=== PATIENT | female | born 1965 | race Caucasian/White ===

== ENCOUNTER 2020-03-04 00:02 | Inpatient (IN) | payer BC, SELFPAY ==
[2020-03-04] VITALS (20 sets, daily range): BP systolic 115–145; BP diastolic 54–77; PULSE 84–126; RESP 20–30; TEMP 36.4–37.9; O2SAT 91–97; BMI 21.5
--- NOTE | ~2020-03-04 | CT_ITS ---
EXAMINATION: CTA chest PE protocol EXAM DATE: 03/04/2020 02:56 INDICATION: Shortness of breath, abnormal x-ray finding. TECHNIQUE: Spiral CTA of the chest (pulmonary arteries) was performed with 100 cc Omnipaque 350 intr avenous contrast injection. Images were acquired during the pulmonary arterial phase. Coronal maxi mum intensity projection 3D-reconstructions were created by the technologist on dedicated workstation . Axial, coronal and sagittal reformatted images were reviewed. The dose-length product (DLP) for t his examination was 166.29 mGy-cm. The exposure was tailored according to patient size (auto mA exp osure control), and iterative reconstruction (ASIR) was used as additional dose reduction technique. There is no prior study for comparison. FINDINGS: Pulmonary arteries are well opacified and without intraluminal filling defects. No thora cic aortic dissection. Lungs are mildly hyperinflated. Several small regions of groundglass attenuation in the right lung, d ifferential diagnosis including atelectasis, infection, acute lung injury. There are no pleural or pe ricardial effusions. Small amount of right lower lobe posterior segmental endobronchial debris. The airways otherwise widely patent. There is no mediastinal, hilar or axillary lymphadenopathy. Ther e is no pneumothorax. Heart normal in size. No evidence of coronary arterial calcification. Hepa tic cyst measuring 1.7 cm. The bones are unremarkable. IMPRESSION: 1. No pulmonary emboli. 2. Several small regions right lung groundglass opacity likely acute airspace disease reconsider ate lectasis, infection, or acute lung injury. Reviewed, dictated and finalized at location G. STIGATIONS CHIEF IMPRESSION: 1. No pulmonary emboli. 2. Several small regions right lung groundglass opacity likely acute airspace disease reconsider atelectasis, infection, or acute lung injury.
--- NOTE | ~2020-03-04 | XR_ITS ---
EXAMINATION: XR chest 1V portable INDICATION: Shortness of breath TECHNIQUE: Portable AP chest at 0036 hours COMPARISON: None available FINDINGS: The lungs are hyperinflated but free of acute opacities. There is no pleural effusion or pn eumothorax. The cardiomediastinal silhouette is normal. IMPRESSION: 1. No acute cardiopulmonary abnormality. Reviewed, dictated and finalized at location A. LE MOUNTER
--- NOTE | 2020-03-04 00:23 | ECG_ITS ---
Measurements Intervals [place] Rate: 121 P: 79 MT: 153 QRS: 74 QRSD: 98 T: 47 QT: 338 QTc: 480 Interpretive Statements SINUS TACHYCARDIA INCOMPLETE RIGHT BUNDLE BRANCH BLOCK DELAYED PRECORDIAL R/S TRANSITION BORDERLINE ST-T WAVE ABNORMALITY- ANTEROLAT/INF LEADS BASELINE ARTIFACT- I, II, III, AVR, AVL, AVF, V1-V6 ABNORMAL ECG Electronically Signed On 03-04-2020 6:52:11 [employer]AMP [employer]ESSER by Dagoberto Nelson D.O.
--- NOTE | 2020-03-04 00:30 | ED.SOB ---
HPI - SOB/Dyspnea General Chief Complaint: Shortness of Breath/Dyspnea Stated Complaint: SOB Time Seen by Provider: 03/04/20 00:07 Source: patient Mode of arrival: ambulatory Limitations: no limitations History of Present Illness HPI Narrative: Patient is a 54-year-old female complaining of shortness of breath started approximately 1 week ago worse tonight. Patient denies any cough, nasal or chest congestion, chest pain, abdominal pain, nausea vomiting, fever or chills. Related Data Home Medications Medication Instructions Recorded Confirmed calcium carbonate 500 mg calcium 500 mg PO DAILY 12/15/19 12/15/19 (1,250 mg) tablet multivitamin 1 tablet PO DAILY 12/15/19 12/15/19 Allergies Allergy/AdvReac Type Severity Reaction Status Date / Time No Known Allergies Allergy Mild Verified 12/15/19 08:56 Review of Systems Review of Systems: All systems reviewed & are unremarkable except as noted in HPI and below Constitutional: Constitutional: Denies body ache(s), Denies chills, Denies excessive sweating, Denies fatigue, Denies fever(s), Denies headache(s), Denies lethargy, Denies malaise, Denies weakness and Denies weight loss Eyes: Eyes: Denies blurry vision, Denies change in vision and Denies loss of vision ENT: Denies dizziness, Denies ear discharge, Denies headache(s), Denies lip swelling, Denies epistaxis, Denies nasal congestion, Denies neck pain, Denies throat swelling and Denies tongue swelling Cardiovascular: Cardiovascular: Denies chest pain, Denies chest pain at rest, Denies chest pain with activity, Denies diaphoresis, Denies rapid heart rate, Denies edema, Denies irregular heart rhythm, Denies lightheadedness and Denies palpitations Respiratory: Respiratory: Denies chest congestion and Denies hemoptysis Gastrointestinal: Gastrointestinal: Denies abdominal pain, Denies melena, Denies hematochezia, Denies diarrhea, Denies nausea, Denies vomiting and Denies hematemesis Musculoskeletal: Musculoskeletal: Denies abnormal gait, Denies deformity, Denies joint swelling, Denies limited range of motion, Denies neck pain and Denies numbness Neurologic: Denies Abnormal speech present, Denies abnormal gait, Denies confusion, Denies dizziness, Denies headache(s), Denies focal weakness, Denies loss of vision, Denies numbness, Denies Other visual disturbances, Denies Sensory deficit (Neuro) and Denies weakness Psychiatric: Psychiatric: Denies confusion, Denies depression, Denies auditory hallucinations, Denies homicidal ideation and Denies suicidal ideation Endocrine: Endocrine: Denies cold intolerance, Denies excessive sweating, Denies fatigue, Denies heat intolerance and Denies palpitations Hematologic/Lymphatic: Hematologic/Lymphatic: Denies easy bleeding and Denies easy bruising Allergic/Immunologic: Allergic/Immunologic: Denies lip swelling, Denies throat swelling and Denies tongue swelling PMFSH Past Medical History Medical History (Updated 03/04/20 @ 03:44 by Tl Nielsen MD) History of vaginal delivery Surgical History Surgical History History of tonsillectomy Family History Family History Grandparent Cerebrovascular accident, Onset Age: 92 Social History Social History Smoking status: Never smoker Tobacco type: cigarettes Second hand tobacco smoke exposure: No Smoking end date: 04/29/05 Alcohol intake: current Exam Const: General: cooperative, healthy appearing, comfortable, no acute distress, well developed, alert and awake; No confusion Orientation/consciousness: oriented to person, oriented to place, oriented to time, patient oriented x3 and No confusion Limitations: no limitations HENMT: Head: normal to inspection, normocephalic and atraumatic Ears: hearing grossly normal bilaterally, TM normal on the righ
[2020-03-04 00:36] LABS: Basophils Absolute Auto 0.1 K/mm3 (0.0-0.1); Basophils Percent Auto 0.4 % (0.2-1.2); Eosinophils Absolute Auto 0.3 K/mm3 (0-0.3); Eosinophils Percent Auto 1.8 % (0-4.4); Hematocrit 49.3 % (37.0-47.0); Hemoglobin 16.2 g/dL (12.0-15.0); Immature Granulocyte Absolute 0.06 K/mm3 (0.00-0.031); Immature Granulocyte Percent A 0.4 % (0-0.5); Lymphocytes Absolute Auto 1.84 K/mm3 (0.9-3.2); Lymphocytes Percent Auto 12.9 % (18.3-44.2); Mean Corpuscular HGB Conc 32.9 g/dl (32-36); Mean Corpuscular Hemoglobin 29.7 pg (26-34); Mean Corpuscular Volume 90.5 fl (80-100); Mean Platelet Volume 10.1 fl (7.4-10.4); Monocytes Absolute Auto 0.8 K/mm3 (0.1-0.6); Monocytes Percent Auto 5.7 % (2.6-8.5); Neutrophils Absolute Auto 11.2 K/mm3 (1.3-6.7); Neutrophils Percent Auto 78.8 % (45.5-73.1); Platelet Count Result 302 k/mm3 (150-375); Red Blood Count 5.45 M/mm3 (4.2-5.4); Red Cell Distribution Width 13.4 % (11.5-14.5); White Blood Count 14.3 K/mm3 (4.5-10.0)
[2020-03-04] MEDS: ALBUTEROL SULFATE NEB 2.5 MG/0.5 ML INH 5 MG INHALATION (00:38)
[2020-03-04] MEDS: IPRATROPIUM BR 0.02% INH SOLN 0.5 MG/2.5 ML VIAL INHALATION ×2 (00:38→19:45)
[2020-03-04] MEDS: methylPREDNISolone SOD SUCC 125 MG VIAL IV PUSH (00:39)
[2020-03-04 00:46] LABS: Prothrombin Time 13.7 Seconds (11.1-14.7)
[2020-03-04 00:47] LABS: Partial Thromboplastin Time 27.4 SECONDS (22.3-36.8)
[2020-03-04 00:51] LABS: Alanine Aminotransferase 32 U/L (4-35); Albumin Level 4.5 g/dL (3.5-5.1); Alkaline Phosphatase 95 U/L (38-126); Anion Gap 10 mmol/L (8-16); Aspartate Amino Transferase 35 U/L (14-36); Bilirubin,Total 0.6 mg/dL (0.2-1.3); Blood Urea Nitrogen 13 mg/dL (7-17); Calcium 9.7 mg/dL (8.4-10.2); Carbon Dioxide 31 mmol/L (22-30); Chloride 102 mmol/L (98-107); Estimated CRCL calculation 87 ml/min; Estimated Glomerular Filt Rate > 60; Glucose 115 mg/dL (65-105); Potassium 3.6 mmol/L (3.4-5.0); Sodium 143 mmol/L (137-145)
[2020-03-04 00:53] LABS: Alveolar/Arterial O2 Gradient 146.9 mmHg; Base Excess ABG -0.3 mEq/l (+/-2.0); Carboxyhemoglobin 0.8 % THb (0-2.0); Device NASAL CANNULA; Fractional Inspired Oxygen 40 %; HCO3 ABG 26.2 mEq/l (22.0-26.0); Methemoglobin ABG 0.4 %THb (0-1.5); Modified Allen's Test Pass; Oxygen Content ABG 21.1 %vol (16.0-22.0); Oxygen Saturation ABG 95.4 % (95.0-100.0); Oxyhemoglobin 94.5 % THb (90.0-100.0); PCO2 ABG 49.3 mmHg (35.0-45.0); PO2 ABG 81.6 mmHg (80.0-100.0); PO2 FiO2 Ratio Arterial Blood 2.04 %; Reduced Hemoglobin 4.3 %THb (0-5.0); Site Drawn LEFT RADIAL; Total Hemoglobin 15.9 g/dL (12.0-18.0); pH ABG 7.343 (7.350-7.450)
[2020-03-04 01:00] LABS: D Dimer 0.27 ug/mL (<0.48)
[2020-03-04 01:01] LABS: Lactic Acid Reflex 1.4 mmol/L (0.7-2.1)
[2020-03-04 01:02] LABS: Troponin I < 0.012 ng/mL (0.000-0.034)
[2020-03-04] MEDS: LACTATED RINGERS 1,000 ML 999 ML IV CONT (04:40)
--- NOTE | 2020-03-04 05:17 | ADMGEN ---
This patient, Myrna Alonso, was admitted to [facility] Surg Room 325-01. Patient/family oriented to hospital policies and general routines including ID bracelet, bed and alarms, visiting hours, pain management, procedures, bathroom and other care routines, personal items, smoking policy, room service/diet, and visiting hours. Information on how to activate the Rapid Response Team has been discussed. Patient/Family are encouraged to report perceived risks to care and to ask questions if they do not understand what they are told or what they should do.
[2020-03-04] MEDS: LACTATED RINGERS 1,000 ML 125 ML IV CONT (05:33)
[2020-03-04 08:32] LABS: Basophils Percent Auto 0.2 % (0.2-1.2); Hematocrit 43.6 % (37.0-47.0); Hemoglobin 14.5 g/dL (12.0-15.0); Immature Granulocyte Absolute 0.03 K/mm3 (0.00-0.031); Immature Granulocyte Percent A 0.3 % (0-0.5); Lymphocytes Percent Auto 7.2 % (18.3-44.2); Mean Corpuscular HGB Conc 33.3 g/dl (32-36); Mean Corpuscular Hemoglobin 29.1 pg (26-34); Mean Corpuscular Volume 87.6 fl (80-100); Mean Platelet Volume 10.6 fl (7.4-10.4); Monocytes Absolute Auto 0.1 K/mm3 (0.1-0.6); Monocytes Percent Auto 0.5 % (2.6-8.5); Neutrophils Absolute Auto 8.9 K/mm3 (1.3-6.7); Neutrophils Percent Auto 91.8 % (45.5-73.1); Platelet Count Result 273 k/mm3 (150-375); Red Blood Count 4.98 M/mm3 (4.2-5.4); Red Cell Distribution Width 13.2 % (11.5-14.5); White Blood Count 9.7 K/mm3 (4.5-10.0)
[2020-03-04 08:45] LABS: Anion Gap 9 mmol/L (8-16); Blood Urea Nitrogen 10 mg/dL (7-17); Calcium 9.4 mg/dL (8.4-10.2); Carbon Dioxide 27 mmol/L (22-30); Chloride 105 mmol/L (98-107); Estimated CRCL calculation 105 ml/min; Estimated Glomerular Filt Rate > 60; Glucose 135 mg/dL (65-105); Potassium 3.9 mmol/L (3.4-5.0); Sodium 141 mmol/L (137-145)
[2020-03-04] MEDS: ACETAMINOPHEN 325 MG TABLET 650 MG PO (10:46)
[2020-03-04] MEDS: CALCIUM CARBONATE (OSCAL) 500 MG TABLET PO (11:17)
[2020-03-04] MEDS: MULTIVITAMINS THERAPEUTIC TAB (*BKC) 1 TABLET PO (11:17)
[2020-03-04] MEDS: guaiFENesin 12 HR 600 MG TABCR 1200 MG PO ×2 (11:17→20:56)
[2020-03-04] MEDS: ASCORBIC ACID 500 MG TABLET PO (11:18)
[2020-03-04] MEDS: CHOLECALCIFEROL 1,000 UNITS TABLET 1000 UNITS PO (11:18)
[2020-03-04] MEDS: ZINC SULFATE 220 MG CAPSULE PO (11:18)
[2020-03-04] MEDS: DEXAMETHASONE SOD PHOS INJ 4 MG/ML VIAL 6 MG IV PUSH (11:18)
--- NOTE | 2020-03-04 11:22 | PM.IMHP ---
H&P: HPI History of Present Illness Date/Time: 03/04/20 11:22 Chief complaint: PNEUMONIA Narrative: Myrna Alonso is a 54 year old female with PMH significant for allergies, frequent sinus infections/nasal congestion, and current tobacco dependence who presented to the emergency department for the evaluation of shortness of breath for 1 week which was worsening. She reports associated wheezing. She notes occasional cough which is productive of clear phlegm and provoked by deep breathing. She denies recent sick contacts including no known contact with anyone positive for COVID-19. She denies subjective fever and chills. She denies chest pain. She denies PND, orthopnea, and lower extremity edema. Per the ED note, her oxygen saturation was in the low 80s on arrival. She was placed on 4 liters per nasal cannula and oxygen saturation improved to 96-97%. Heart rate was 126 and respiratory rate was 30. Temperature was 97.8F. Initial workup in the ED: WBC 14,300 with neutrophil predominance, Hb 16.2, Hct 49.3, platelets 302, ABG (on 5 liters per nasal cannula) with pH 7.343, pCO2 49.3, pO2 81.6, HCO3 26.2. CMP showed CO2 31 and otherwise unremarkable. Troponin was <0.012. CXR showed hyperinflation without acute opacities, effusion, or pneumothorax. Cardiomediastinal silhouette was normal. Chest CTA was performed and showed no evidence of pulmonary embolism. The lungs were again noted to be hyperinflated with several small regions of ground glass opacities in the right lung suspicious for atelectasis, infection, or acute lung injury. There is a small amount of right lower lobe posterior segmental endobronchial debris. Hepatic cyst measuring 1.7cm was also present. In the ED, she was treated with IV solu-medrol, IV fluids, IV azithromycin and ceftriaxone, and bronchodilators. She was admitted to the hospitalist service for pneumonia under isolation and tested for COVID-19. Review of Systems Review of Systems: Narrative: Constitutional: Low grade 100.3F temp today. She denies chills. No fatigue. Reports frequent seasonal allergies. Eyes: Denies vision change. No additional eye complaints. ENT: Reports frequent upper respiratory infections and congestion from hx of allergies. Denies sore throat. Denies sinus congestion at this time. Cardiovascular: Denies palpitations and chest pain. Denies PND and orthopnea. Respiratory: As above. Gastrointestinal: Denies abdominal pain, nausea, and vomiting. Denies diarrhea and constipation. Genitourinary: Denies dysuria, frequency, urgency, and hesitancy. Musculoskeletal: Denies joint pain and swelling. Denies muscle cramps and weakness. Skin: Denies lesions and wounds. Neurologic: Denies focal weakness, paresthesias, confusion, and speech change. Psychiatric: Denies mood change. Denies anxiety and depression. Hematologic: Denies easy bruising and bleeding. All systems reviewed & are unremarkable except as noted in HPI and below PMFSH Past Medical History Medical History (Updated 03/04/20 @ 20:33 by Kenia Bhatti PA-C) History of vaginal delivery Post-nasal drainage Seasonal allergies Sinus congestion Surgical History Surgical History History of tonsillectomy Family History Family History (Updated 03/04/20 @ 17:27 by Kenia Bhatti PA-C) Grandparent Cerebrovascular accident, Onset Age: 92 Father Dementia Grandparent Gastric cancer Grandparent Oral cancer Sibling Hypertension Social History Social History (Updated 03/04/20 @ 17:31 by Kenia Bhatti PA-C) Social History: Mrs. Alonso lives in [place] with her , Sacha, and 14 y.o. daughter. 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 She wishes to be a full code and has designated her , Sacha Alonso, as her surrogate medical decision maker. She reports that she is currently smoking <0.5 PPD. She has smoked 0.5-1PPD for 35 years. She drinks
[2020-03-04 15:20] LABS: SARS-CoV-2 RNA PCR Negative
[2020-03-04] MEDS: methylPREDNISolone SOD SUCC 125 MG VIAL 60 MG IV PUSH (17:40)
[2020-03-04] MEDS: PANTOPRAZOLE 40 MG TABLET PO (17:40)
[2020-03-04] MEDS: DOXYCYCLINE HYCLATE 100 MG TABLET PO (20:57)
[2020-03-04] MEDS: ENOXAPARIN 40 MG/0.4 ML SYRINGE SUB-Q (20:57)
[2020-03-05] VITALS (15 sets, daily range): BP systolic 114–141; BP diastolic 61–73; PULSE 76–110; RESP 16–20; TEMP 36.1–37.3; O2SAT 91–96
[2020-03-05] MEDS: methylPREDNISolone SOD SUCC 125 MG VIAL 60 MG IV PUSH ×3 (01:21→17:55)
[2020-03-05] MEDS: IPRATROPIUM BR 0.02% INH SOLN 0.5 MG/2.5 ML VIAL INHALATION ×4 (02:08→21:35)
[2020-03-05 07:22] LABS: Basophils Percent Auto 0.1 % (0.2-1.2); Immature Granulocyte Absolute 0.11 K/mm3 (0.00-0.031); Immature Granulocyte Percent A 0.7 % (0-0.5); Lymphocytes Absolute Auto 0.93 K/mm3 (0.9-3.2); Lymphocytes Percent Auto 6.3 % (18.3-44.2); Mean Corpuscular HGB Conc 32.5 g/dl (32-36); Mean Corpuscular Hemoglobin 29.3 pg (26-34); Mean Corpuscular Volume 90.1 fl (80-100); Mean Platelet Volume 10.4 fl (7.4-10.4); Monocytes Absolute Auto 0.3 K/mm3 (0.1-0.6); Neutrophils Absolute Auto 13.4 K/mm3 (1.3-6.7); Neutrophils Percent Auto 90.9 % (45.5-73.1); Platelet Count Result 248 k/mm3 (150-375); Red Blood Count 4.44 M/mm3 (4.2-5.4); White Blood Count 14.7 K/mm3 (4.5-10.0)
[2020-03-05] MEDS: guaiFENesin 12 HR 600 MG TABCR 1200 MG PO ×2 (08:44→20:09)
[2020-03-05] MEDS: MULTIVITAMINS THERAPEUTIC TAB (*BKC) 1 TABLET PO (08:44)
[2020-03-05] MEDS: DOXYCYCLINE HYCLATE 100 MG TABLET PO ×2 (08:44→20:09)
[2020-03-05] MEDS: CALCIUM CARBONATE (OSCAL) 500 MG TABLET PO (08:45)
[2020-03-05] MEDS: PANTOPRAZOLE 40 MG TABLET PO (08:45)
[2020-03-05 09:09] LABS: Blood Urea Nitrogen 12 mg/dL (7-17); Calcium 8.8 mg/dL (8.4-10.2)
[2020-03-05 09:10] LABS: Anion Gap 9 mmol/L (8-16); Carbon Dioxide 26 mmol/L (22-30); Chloride 107 mmol/L (98-107); Estimated CRCL calculation 87 ml/min; Estimated Glomerular Filt Rate > 60; Glucose 126 mg/dL (65-105); Magnesium 1.9 mg/dL (1.6-2.3); Potassium 3.6 mmol/L (3.4-5.0); Sodium 142 mmol/L (137-145)
--- NOTE | 2020-03-05 11:18 | PM.IMPN ---
Progress Note: A&P Assessment and Plan (1) Sepsis: Code(s): A41.9 - Sepsis, unspecified organism Status: Acute Assessment and Plan: Supported by tachycardia, leukocytosis, and tachypnea. The suspected source is pneumonia. Lactic acid was normal at 1.4. Blood cultures were obtained and showing NGTD x 1 day. Plan to continue antibiotic therapy. She received iV fluid hydration and she is tolerating PO fluids intake well. Continue to monitor vitals and urine output. Await final blood and sputum cultures. (2) Acute respiratory failure with hypoxia and hypercapnia: Code(s): J96.01 - Acute respiratory failure with hypoxia; J96.02 - Acute respiratory failure with hypercapnia Status: Acute Assessment and Plan: Secondary to pneumonia and bronchospasm. Suspect that she may have underlying COPD/asthma and recommended outpatient pulmonary function testing when she recovers from her acute illness. Continue antibiotic therapy for the treatment of pneumonia. Continue supplemental oxygen as needed to maintain oxygen saturation greater than 90%. Overall patient has improved, satting 91% on RA. (3) Community acquired pneumonia: Code(s): J18.9 - Pneumonia, unspecified organism Status: Acute Assessment and Plan: Clinically has improved overnight. Chest CTA demonstrates several small regions of groundglass attenuation opacity in the right lung. WBC elevated at 14.7k today but also partly due to IV steroids; afebrile since yesterday. Continue IV ceftriaxone and doxycycline given prolonged QTc. Continue supportive care with bronchodilators, mucinex, PEP therapy, incentive spirometry. Check sputum culture, urine legionella and pneumococcal antigens. Blood cultures showing NGTD x 2 after 1 day. Continue supplemental oxygen as needed to maintain oxygen saturation >90%. (4) Bronchospasm: Code(s): J98.01 - Acute bronchospasm Status: Acute Assessment and Plan: She has never been formally diagnosed with asthma or COPD but I suspect underlying bronchospasm, exacerbated by pneumonia, as she has hyperinflation of the lungs. Will taper frequency of steroid therapy to Q12hr and treatment of pneumonia as above. Continue bronchodilators. Continue supplemental oxygen as needed to maintain SpO2 >90%. WE discussed that we recommend she follow-up outpatient for formal pulmonary function testing again today (5) Hepatic cyst: Code(s): K76.89 - Other specified diseases of liver Status: Acute Assessment and Plan: Chest CTA shows hepatic cyst measuring 1.7cm. Recommend outpatient follow-up per her PCP. Subjective Date/time seen: 03/05/20 11:18 Interval history: Patient is a 54 yo F with history of allergies, frequent sinus infections/nasal congestion, and current tobacco dependence who is seen in follow up for suspected bacterial pneumonia with acute respiratory failure with hypoxia and possible undiagnosed COPD with possible exacerbation. Patient states she feels much better today. She is not quite back to baseline, but her SOB and wheezing has improved. She has been weaned to RA today. Denies f/c/s. No other complaints. Denies headaches, dizziness, lightheadedness, current cp/palpitations, current sob, n/v/d/c, abd pain, changes in BMs, dysuria, calf pain/swelling. Review of Systems Review of Systems: All systems reviewed & are unremarkable except as noted in HPI and below Exam Narrative: Exam Narrative: General: Very pleasant, well-developed, and well-nourished 54 y.o. female sitting in bed in no acute distress. On RA at time of visit HEENT: Normocephalic and atraumatic. EOMI. Oral mucosa moist. Neck: Supple. Cardiac: RRR. Telemetry reviewed with occasional sinus tachycardia; no other
[2020-03-05] MEDS: ENOXAPARIN 40 MG/0.4 ML SYRINGE SUB-Q (20:11)
[2020-03-06] VITALS (9 sets, daily range): BP systolic 121–129; BP diastolic 55–68; PULSE 79–103; RESP 16–20; TEMP 36.9–37.3; O2SAT 92–95
--- NOTE | 2020-03-06 03:31 | PCRCNOTE ---
Window of time for administration has passed. See next scheduled administration.
[2020-03-06 06:35] LABS: Basophils Percent Auto 0.1 % (0.2-1.2); Hematocrit 38.8 % (37.0-47.0); Hemoglobin 12.6 g/dL (12.0-15.0); Immature Granulocyte Percent A 0.7 % (0-0.5); Mean Corpuscular HGB Conc 32.5 g/dl (32-36); Mean Corpuscular Volume 89.2 fl (80-100); Mean Platelet Volume 10.3 fl (7.4-10.4); Monocytes Absolute Auto 0.7 K/mm3 (0.1-0.6); Monocytes Percent Auto 4.8 % (2.6-8.5); Neutrophils Absolute Auto 11.7 K/mm3 (1.3-6.7); Neutrophils Percent Auto 79.4 % (45.5-73.1); Platelet Count Result 256 k/mm3 (150-375); Red Blood Count 4.35 M/mm3 (4.2-5.4); Red Cell Distribution Width 14.2 % (11.5-14.5); White Blood Count 14.7 K/mm3 (4.5-10.0)
[2020-03-06 06:51] LABS: Anion Gap 7 mmol/L (8-16); Blood Urea Nitrogen 16 mg/dL (7-17); Calcium 8.8 mg/dL (8.4-10.2); Carbon Dioxide 29 mmol/L (22-30); Chloride 107 mmol/L (98-107); Estimated CRCL calculation 87 ml/min; Estimated Glomerular Filt Rate > 60; Glucose 95 mg/dL (65-105); Potassium 3.8 mmol/L (3.4-5.0); Sodium 143 mmol/L (137-145)
[2020-03-06] MEDS: IPRATROPIUM BR 0.02% INH SOLN 0.5 MG/2.5 ML VIAL INHALATION ×3 (07:28→20:43)
[2020-03-06] MEDS: DOXYCYCLINE HYCLATE 100 MG TABLET PO ×2 (09:48→20:03)
[2020-03-06] MEDS: PANTOPRAZOLE 40 MG TABLET PO (09:48)
[2020-03-06] MEDS: guaiFENesin 12 HR 600 MG TABCR 1200 MG PO ×2 (09:49→20:03)
[2020-03-06] MEDS: methylPREDNISolone SOD SUCC 125 MG VIAL 60 MG IV PUSH (09:49)
[2020-03-06] MEDS: CALCIUM CARBONATE (OSCAL) 500 MG TABLET PO (09:49)
[2020-03-06] MEDS: MULTIVITAMINS THERAPEUTIC TAB (*BKC) 1 TABLET PO (09:49)
--- NOTE | 2020-03-06 12:24 | PM.IMPN ---
Progress Note: A&P Assessment and Plan (1) Sepsis: Code(s): A41.9 - Sepsis, unspecified organism Status: Acute Assessment and Plan: Supported by tachycardia, leukocytosis, and tachypnea. The suspected source is pneumonia. Lactic acid was normal at 1.4. Blood cultures were obtained and show no growth to date. Plan to continue antibiotic therapy. She received IV fluid hydration and she is tolerating PO fluids intake well. Continue to monitor vitals and urine output. Await final blood cultures. (2) Acute respiratory failure with hypoxia and hypercapnia: Code(s): J96.01 - Acute respiratory failure with hypoxia; J96.02 - Acute respiratory failure with hypercapnia Status: Resolved Assessment and Plan: Resolved. Secondary to pneumonia and bronchospasm. I suspect that she may have underlying COPD/asthma and recommend outpatient pulmonary function testing when she recovers from her acute illness. Continue antibiotic therapy for the treatment of pneumonia. She is on room air. (3) Community acquired pneumonia: Code(s): J18.9 - Pneumonia, unspecified organism Status: Acute Assessment and Plan: Chest CTA demonstrates several small regions of groundglass attenuation opacity in the right lung. WBC was elevated at 14.3 and temp was low-grade at 100.3F. Continue IV ceftriaxone and will give doxycycline given prolonged QTc (day 3/7). Continue supportive care with bronchodilators, mucinex, PEP therapy, incentive spirometry. Blood cultures show no growth to date. Urine legionella and pneumococcal antigens are pending. She was weaned to room air and did not require oxygen on home oxygen evaluation. Continue to monitor. (4) Bronchospasm: Code(s): J98.01 - Acute bronchospasm Status: Acute Assessment and Plan: She has never been formally diagnosed with asthma or COPD but I suspect underlying bronchospasm, exacerbated by pneumonia, as she has hyperinflation of the lungs. Will continue steroid therapy with taper to PO prednisone tomorrow and treatment of pneumonia as above. Continue bronchodilators. She is tolerating room air and did not require oxygen on home oxygen evaluation today. I discussed that I recommend she follow-up outpatient for formal pulmonary function testing and will refer her to see pulmonology outpatient. (5) Hepatic cyst: Code(s): K76.89 - Other specified diseases of liver Status: Acute Assessment and Plan: Chest CTA shows hepatic cyst measuring 1.7cm. Recommend outpatient follow-up per her PCP. Subjective Date/time seen: 03/06/20 12:24 Mrs. Alonso is seen in follow-up for community acquired pneumonia with a component of bronchospasm and concern for underlying COPD/asthma. She was weaned to room air and underwent home oxygen evaluation today. She did not require supplemental oxygen with activity or at rest. She feels much better today. She is concerned about possibly having COPD and I explained that she will need formal outpatient pulmonary function testing for a definite diagnosis. She is no longer having any dyspnea. She reports no significant cough. She has no chest pain or pleuritic pain. She has no further wheezing. She notes that her appetite is good and she is tolerating her diet. Review of Systems Review of Systems: All systems reviewed & are unremarkable except as noted in HPI and below Exam Narrative: Exam Narrative: General:Pleasant, well-developed, and well-nourished 54 y.o. female lying semi-recumbent in bed in no acute distress. HEENT: Normocephalic and atraumatic. EOMI. Oral mucosa moist. Neck: Supple. Cardiac: Regular rate and rhythm. Lungs: Tolerating room air. No increased work of breathing. Respirations even and non-labored. Lungs are clear to auscultation bilaterally without wheezes, rhonchi, or rales. Abdomen: Bowel sounds are normoactive. Abdomen is soft, non-tender, and non-distended.
--- NOTE | 2020-03-06 16:53 | HOMEO2EVAL ---
Home Oxygen Evaluation RC: Home Oxygen (O2) Evaluation Start: 03/06/20 12:23 Freq: ONCE Status: Active Protocol: RPE Activity Type Activity Date Activity User E-Sign Co-Sign Detail Recorded Client Recorded Date Recorded By Document 03/06/20 15:30 TJT [email or web address] 03/06/20 16:46 TJT Document 03/06/20 15:35 TJT [email or web address] 03/06/20 16:49 TJT Document 03/06/20 16:49 TJT [email or web address] 03/06/20 16:51 TJT 03/06/20 03/06/20 03/06/20 15:30 15:35 16:49 Home O2 Evaluation Test Phase Resting Exercise Resting Oxygen Delivery Room Air Room Air Room Air Fraction of Inspired Oxygen (%) 21 21 21 Pulse Oximetry (90-100 %) 94 92 94 Pulse Rate (60-100 beats/min) 96 103 H 94 Activity Tolerance Good Good Home Oxygen Evaluation Comments Pt resting on pt walked for 5 Pt resting on RA min on RA RA post walk Treatment Charges O2 Evaluation
--- NOTE | 2020-03-06 16:54 | PCRCNOTE ---
Home O2 evaluation completed. Pt did not require oxygen.
[2020-03-06] MEDS: ENOXAPARIN 40 MG/0.4 ML SYRINGE SUB-Q (20:03)
[2020-03-07] VITALS (7 sets, daily range): BP systolic 133; BP diastolic 73; PULSE 82–92; RESP 18–20; TEMP 37.1; O2SAT 93
[2020-03-07] MEDS: IPRATROPIUM BR 0.02% INH SOLN 0.5 MG/2.5 ML VIAL INHALATION ×2 (01:37→08:07)
[2020-03-07 06:40] LABS: Hematocrit 39.7 % (37.0-47.0); Mean Corpuscular HGB Conc 32.7 g/dl (32-36); Mean Corpuscular Hemoglobin 29.7 pg (26-34); Mean Corpuscular Volume 90.8 fl (80-100); Mean Platelet Volume 10.4 fl (7.4-10.4); Platelet Count Result 227 k/mm3 (150-375); Red Blood Count 4.37 M/mm3 (4.2-5.4); Red Cell Distribution Width 14.3 % (11.5-14.5); White Blood Count 10.6 K/mm3 (4.5-10.0)
[2020-03-07 06:48] LABS: Anion Gap 5 mmol/L (8-16); Blood Urea Nitrogen 13 mg/dL (7-17); Calcium 8.7 mg/dL (8.4-10.2); Carbon Dioxide 29 mmol/L (22-30); Chloride 106 mmol/L (98-107); Estimated CRCL calculation 87 ml/min; Estimated Glomerular Filt Rate > 60; Glucose 84 mg/dL (65-105); Potassium 3.2 mmol/L (3.4-5.0); Sodium 140 mmol/L (137-145)
[2020-03-07] MEDS: POTASSIUM CHLORIDE 20 MEQ TABLET 40 MEQ PO (09:03)
[2020-03-07] MEDS: DOXYCYCLINE HYCLATE 100 MG TABLET PO (09:04)
[2020-03-07] MEDS: guaiFENesin 12 HR 600 MG TABCR 1200 MG PO (09:04)
[2020-03-07] MEDS: PANTOPRAZOLE 40 MG TABLET PO (09:04)
[2020-03-07] MEDS: predniSONE 20 MG TABLET 40 MG PO (09:04)
[2020-03-07] MEDS: MULTIVITAMINS THERAPEUTIC TAB (*BKC) 1 TABLET PO (09:04)
[2020-03-07] MEDS: CALCIUM CARBONATE (OSCAL) 500 MG TABLET PO (09:04)
--- NOTE | 2020-03-07 09:24 | PM.DS ---
DS: Admitting Diagnosis Admitting Diagnosis Admitting Diagnosis: PNEUMONIA DS: Discharge Diagnosis Discharge Diagnosis (1) Sepsis: Code(s): A41.9 - Sepsis, unspecified organism Status: Acute Assessment and Plan: Discharge Summary (Date of service 03/07/20): Mrs. Alonso is a 54 y.o. female with PMH significant for allergies, frequent sinus infections/nasal congestion, and tobacco dependence who presented to the emergency department for the evaluation of shortness of breath for 1 week which was worsening with associated wheezing and cough. Per the ED note, her oxygen saturation was in the low 80s on arrival. She was placed on 4 liters per nasal cannula and oxygen saturation improved to 96-97%. Heart rate was 126 and respiratory rate was 30. Temperature was 97.8F. Initial workup in the ED included WBC 14,300 with neutrophil predominance, Hb 16.2, Hct 49.3, platelets 302, ABG (on 5 liters per nasal cannula) with pH 7.343, pCO2 49.3, pO2 81.6, HCO3 26.2. CMP showed CO2 31 and otherwise unremarkable. Troponin was <0.012. CXR showed hyperinflation without acute opacities, effusion, or pneumothorax. Cardiomediastinal silhouette was normal. Chest CTA was performed and showed no evidence of pulmonary embolism. The lungs were again noted to be hyperinflated with several small regions of ground glass opacities in the right lung suspicious for atelectasis, infection, or acute lung injury. There is a small amount of right lower lobe posterior segmental endobronchial debris. Hepatic cyst measuring 1.7cm was also present. In the ED, she was treated with IV solu-medrol, IV fluids, IV antibiotics, and bronchodilators. She was admitted to the hospitalist service for pneumonia under isolation and tested for COVID-19. COVID-19 testing was negative and isolation precautions were discontinued. She was treated with IV solu-medrol, IV ceftriaxone, and PO doxycycline for community acquired pneumonia with underlying bronchospasm suspected. She met SIRS criteria with tachycardia, leukocytosis, and tachypnea. Pneumonia was suspected as the source of sepsis. Blood cultures were obtained and final cultures show no growth. Lactic acid was normal at 1.4. She improved significantly from a respiratory standpoint and she was weaned to room air 03/05/20. IV solu-medrol was tapered and she was discharged on a PO prednisone taper. Home oxygen evaluation was performed and she did not require home oxygen at rest or with exertion. She was encouraged to follow-up with pulmonology for outpatient pulmonary function testing once she recovered from her acute illness due to suspected underlying bronchospasm due to COPD vs asthma. Smoking cessation was discussed with the patient for >10 minutes the day of discharge. I discussed the importance of continued cessation and she was working on quitting prior to admission. She felt much better and was stable for discharge 03/07/20. She was discharged in hemodynamically stable condition on the morning of 03/07/20. She was advised to take her PO antibiotics for 4 more days. She verbalized understanding with the plan of care. All additional questions were answered. Concerning signs and symptoms were discussed which would warrant return to the emergency department. (2) Acute respiratory failure with hypoxia and hypercapnia: Code(s): J96.01 - Acute respiratory failure with hypoxia; J96.02 - Acute respiratory failure with hypercapnia Status: Resolved Assessment and Plan: Resolved. Secondary to pneumonia and bronchospasm. I suspect that she may have underlying COPD/asthma and recommend outpatient pulmonary function testing when she recovers from her acute illness. She was weaned to room air and did not require oxygen on home oxygen evaluation. (3) Community acquired pneumonia: Code(s): J18.9 - Pneumonia, unspecified organism Status: Acute Assessment and Plan: Chest CTA demonstrated several small regions of groundgl
[2020-03-09 07:44] LABS: Legionella pneumophila Ag Ur Not Detected (Not Detected); Pneumococcal Antigen Urine Not Detected (Not Detected)
== END 2020-03-07 11:05 | disposition home or self-care (01) | DRG 871 ==
LOC: ANHED 03:44 → ANH3MEDSUR 06:17
PROVIDERS: Physician Assistant; Admitting Provider Family Medicine; Emergency Provider Emergency Medicine; PCP Internal Medicine; Visit Provider Physician Assistant
DX: A41.9 Sepsis, unspecified organism (principal); J18.9 Pneumonia, unspecified organism; J96.01 Acute respiratory failure with hypoxia; J96.02 Acute respiratory failure with hypercapnia; J44.0 Chronic obstructive pulmonary disease with (acute) lower respiratory infection; J98.01 Acute bronchospasm; Z20.828 Contact with and (suspected) exposure to other viral communicable diseases; K76.89 Other specified diseases of liver; F17.210 Nicotine dependence, cigarettes, uncomplicated
CPT/HCPCS: 36415; 36600; 71045; 71275; 80048; 80053; 82375; 82805; 83050; 83605; 83735; 84484; 85025; 85027; 85380; 85610; 85730; 87040; 87449; 87635; 87899; 93005; 94618; 94640; 94667; 94668; 96374; 96375; 99285; A9270; C9803; J0456; J0696; J1100; J1650; J2930; J7120; J7512; Q9967; U0003

== ENCOUNTER 2022-01-09 11:11 | Outpatient (CLI) | payer BC, SELFPAY ==
--- NOTE | 2022-01-09 11:18 | ECG_ITS ---
Measurements Intervals [place] Rate: 66 P: 80 RI: 139 QRS: 36 QRSD: 101 T: 49 QT: 404 QTc: 423 Interpretive Statements SINUS RHYTHM VENTRICULAR PREMATURE COMPLEX POSSIBLE LEFT ATRIAL ENLARGEMENT INCOMPLETE RIGHT BUNDLE BRANCH BLOCK BORDERLINE ST ABNORMALITY- ANTEROLAT/INF LEADS BORDERLINE ECG COMPARED TO ECG 03/04/2020 00:12:30 SINUS RHYTHM NOW PRESENT Electronically Signed On 01-09-2022 12:11:09 CDT by Dagoberto Nelson D.O.
== END 2022-01-09 11:12 | disposition home or self-care (01) ==
LOC: ANHLAB 11:18 → ANHCARD 11:22
PROVIDERS: PCP Internal Medicine; Visit Provider Obstetrics & Gynecology
DX: I49.9 Cardiac arrhythmia, unspecified (principal); I45.10 Unspecified right bundle-branch block
CPT/HCPCS: 93005